=== PATIENT | male | born 1995 ===

== ENCOUNTER 2019-01-08 17:00 | Emergency (ER) | payer BC ==
[2019-01-08 17:09] VITALS: BP 146/80
--- NOTE | 2019-01-08 18:11 | UC ---
Abdominal Pain Male HPI - HPI Summary HPI Summary: Patient presents to urgent care reporting he's been having intermittent discomfort very low in his abdomen. Patient states it feels "buzz feeling "inside. Patient states occasionally he has sensation up and down his abdomen and into his testicles and penis. Patient denies any dysuria. No hematuria. No back pain. No difficulty with bowel movement. No penile discharge. No penile lesions. Patient denies any nausea vomiting. No fevers or chills. Patient has not taken anything pain. Patient states he feels time. Patient states he did do some vigorous work at the gym as well as anything significant. Patient also states he started playing a lot of golf again and noticed pain is most intense after he was wearing his golf club. Patient with a recheck for sexual transmitted diseases. She is a monogamous relationship and does not have any discharge. Patient states his particularly discharge. Patient states he's just been working on the Internet thinking about what could be and he wants to make sure. Patient without a history of STD. Pt states he is focusing on the discomfort and it is making him anxious Patient has not taken anything for pain. Patient without the pain right now. Patient's medications reviewed this visit. - History of Current Complaint Chief Complaint: UCAbdominalPain Stated Complaint: ABD PAIN Time Seen by Provider: 01/08/19 17:51 Hx Obtained From: Patient Onset/Duration: Lasting Weeks Timing: Intermittent Episodes Lasting: Severity Currently: None Pain Intensity: 0 - Allergies/Home Medications Allergies/Adverse Reactions: Allergies Allergy/AdvReac Type Severity Reaction Status Date / Time No Known Allergies Allergy Verified 01/08/19 17:08 Home Medications: Home Medications NK [No Home Medications Reported] 01/08/19 [History Confirmed 01/08/19] PMH/Surg Hx/FS Hx/Imm Hx Previously Healthy: Yes Psychological History: Anxiety - Surgical History Surgical History: Yes Surgery Procedure, Year, and Place: hernia repair - Family History Known Family History: Positive: Non-Contributory - Social History Occupation: Employed Full-time Lives: With Family Alcohol Use: Occasionally Substance Use Type: None Smoking Status (MU): Former Smoker Review of Systems All Other Systems Reviewed And Are Negative: Yes Constitutional: Positive: Negative Skin: Positive: Negative Eyes: Positive: Negative ENT: Positive: Negative Gastrointestinal: Positive: Abdominal Pain. Negative: Vomiting, Diarrhea, Nausea Genitourinary: Negative: Dysuria, Hematuria, Frequency, Urgency Motor: Positive: Negative Neurovascular: Positive: Negative Physical Exam - Summary Physical Exam Summary: Vital Signs Reviewed: Yes A+Ox3, no distress, easily changes positions, ambulated Eyes: Conjunctiva Clear, ROZINA. EOM intact and full ENT: Hearing grossly normal TM x 2 clear, mmoist, uvula midline, no exudate, no erythema Neck: Positive: Supple Respiratory: Positive: No respiratory distress, No accessory muscle use + CTA throughout no w/r Cardiovascular: RRR nl s1, s2 no m/r CBT <2 sec abd soft + BS nt/nd no guarding, no distension, no CVA exam: RN at bedside: testicles down b/l, no pain with palpation, no pain epidymitis, no penile discharge, lesion no hernia pt with know varicocele on left - palpable and mildly tender TTP insertion of rectus sheath into pubic as well as mild discomfort L>R lateral margin of rectus abdominals pt without suprapubic pain pt with reproducible Musculoskeletal Exam: FERRER x 4 without difficulty Strength Intact, ROM Intact Neurological: Positive: Alert, + sensation throughout Psychological: Positive: Normal Response To Family Skin: Positive: no rash, no ecchymosis Triage Information Reviewed: Yes Vital Signs: Initial Vital Signs Temp 98.6 F 01/08/19 17:03 Pulse 67 01/08/19 17:03 Resp 18 01/08/19 17:03 BP 146/80 01/08/19 17:03 Pulse Ox 100 01/08/19 17:03 Abd Pain Male Course/Dx - Course Course Of Treatment: Patient presents to urgent care reporting intermittent episodes of discomfort that he states feels like an intense both feeling in his lower abdomen. Patient states sometimes is worse with position. Patient states sometimes he feels that radiates into his testicles. No direct trauma. No fevers or chills. No diarrhea. No penile discharge or lesions. Detailed exam revealed discomfort at the insertion of his rectus abdominis muscles as well as his rectus sheath at pubic area. No edema no guarding normal genitalia exam. After much discussion since suspect pain may be a strain related to his coughing activities. Recommended heat and stretch. Recommended Motrin Tylenol. Will check CBC chemistry and thyroid as patient's very anxious. We' ll also do STD checking. Reassured patient. Patient comfortable in agreement with plan. Patient given referral information for physician referral center Pt's BP mildly increased, anxious, recommend f/u with pcp - Differential Dx/Clinical Impression Provider Diagnosis: Abdominal muscle strain Discharge - Sign-Out/Discharge Documenting (check all that apply): Patient Departure All imaging exams completed and their final reports reviewed: No Studies - Discharge Plan Condition: Stable Disposition: HOME Patient Education Materials: Abdominal Pain (ED) Referrals: [facility] [place] [facility]ERR[facility] [Outside] No Primary Care Phys,NOPCP [Primary Care Provider] - Additional Instructions: The doctor that examined you today does not think your abdominal pain is serious. As discussed, it may be related to your abdominal wall muscles It is recommended you take ibuprofen (ADvil. Motrin) or Tylenol for discomfort Slow, gentle stretching exercises are advised As discussed, your blood work and urine tests will come back over the next several days - you will receive a call from a care nut steamer if your results require further testing You have been given the contact information for the physician referral center - call to establish with a new primary doctor If your pain worsens, you develop fever, chills, vomiting or any other concerns it is recommended you go to the emergency department for further evaluation - Billing Disposition and Condition Condition: STABLE Disposition: Home
[2019-01-09 10:24] LABS: ABS Basophils 0 10^3/ul (0-0.2); ABS Eosinophils 0.1 10^3/ul (0-0.6); ABS Lymphocytes 1.6 10^3/ul (1.0-4.8); ABS Monocytes 0.5 10^3/ul (0-0.8); ABS Neutrophils 4.4 10^3/ul (1.5-7.7); ABS Nucleated RBC 0 10^3/ul; Hematocrit 46 % (36-46); Hemoglobin 15.9 g/dL (14.0-18.0); Mean Corpuscular HGB Conc 35 g/dL (31-36); Mean Corpuscular Hemoglobin 32 pg (27-31); Mean Corpuscular Volume 91 fL (80-94); Nucleated Red Blood Cells % 0.1; Platelet Count 240 10^3/uL (150-450); Red Blood Count 5.04 10^6 /uL (4.18-5.48); Red Cell Distribution Width 13 % (10.5-15); White Blood Count 6.7 10^3/uL (3.5-10.8)
[2019-01-09 10:37] LABS: Albumin 5.2 g/dL (3.2-5.2); Albumin/Globulin Ratio 2.2 (1-3); BUN/Creatinine Ratio 10.7 (8-20); Calcium 10.3 mg/dL (8.6-10.3); EGFR African American 88.4 (>60); EGFR Non-African American 73.1 (>60); Globulin 2.4 g/dL (2-4); Potassium 3.9 mmol/L (3.5-5.0); Total Protein 7.6 g/dL (6.4-8.9)
[2019-01-09 10:49] LABS: TSH (Thyroid Stimulating Horm) 2.4 mcIU/mL (0.34-5.60)
--- NOTE | 2019-01-09 15:21 | UC ---
- Progress Note Progress Note: Blood laboratory reports come back from January 08, 2019. The creatinine is elevated at 1.21. Normal range is 0.67-1.17. This is a mild elevation. CBC is normal the rest of the CMP is normal the TSH is within normal limits. Nursing to call patient and let him know of the results. Overall he should drink plenty of water and get this rechecked through his primary care physician. Course/Dx - Diagnoses Provider Diagnoses: Creatinine elevation Discharge - Sign-Out/Discharge Documenting (check all that apply): Patient Departure All imaging exams completed and their final reports reviewed: No Studies - Discharge Plan Condition: Stable Disposition: HOME Patient Education Materials: Abdominal Pain (ED) Referrals: [facility] [place] [facility]ERR[facility] [Outside] No Primary Care Phys,NOPCP [Primary Care Provider] - Additional Instructions: The doctor that examined you today does not think your abdominal pain is serious. As discussed, it may be related to your abdominal wall muscles It is recommended you take ibuprofen (ADvil. Motrin) or Tylenol for discomfort Slow, gentle stretching exercises are advised As discussed, your blood work and urine tests will come back over the next several days - you will receive a call from a care steam tender if your results require further testing You have been given the contact information for the physician referral center - call to establish with a new primary doctor If your pain worsens, you develop fever, chills, vomiting or any other concerns it is recommended you go to the emergency department for further evaluation - Billing Disposition and Condition Condition: STABLE Disposition: Home
[2019-01-11 13:23] LABS: Neisseria gonorrhoeae (GC) RNA Negative (Negative)
== END 2019-01-08 18:45 | disposition home or self-care (01) ==
LOC: UCEAST 17:00
DX: S39.011A Strain of muscle, fascia and tendon of abdomen, initial encounter (principal); X58.XXXA Exposure to other specified factors, initial encounter; Y92.9 Unspecified place or not applicable; R79.89 Other specified abnormal findings of blood chemistry; R03.0 Elevated blood-pressure reading, without diagnosis of hypertension; F41.9 Anxiety disorder, unspecified; Z87.891 Personal history of nicotine dependence
CPT/HCPCS: 36415; 80053; 81003; 84443; 85025; 86703; 87086; 87491; 87591; 99201; G0463

== ENCOUNTER 2019-11-29 08:59 | Emergency (ER) | payer SELFPAY ==
[2019-11-29] MEDS ORDERED: Acetaminophen TAB* 325 MG PO ONE (11:31)
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
[2019-11-29 13:54] VITALS: BP 139/75
== END 2019-11-29 13:53 | disposition home or self-care (01) ==
LOC: ED 08:59
DX: Z04.1 Encounter for examination and observation following transport accident (principal); M54.2 Cervicalgia; R20.2 Paresthesia of skin; Z87.891 Personal history of nicotine dependence
CPT/HCPCS: 71046; 72125; 99283; A9270-GY